=== PATIENT | female | born 2000 | race Caucasian/White ===

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

== ENCOUNTER 2023-10-03 11:38 | Emergency (ER) | payer BC ==
[2023-10-03] MEDS ORDERED: ACETAMINOPHEN INJECTION 100 ML IVPB ONE (12:27)
[2023-10-03] MEDS: SODIUM CHLORIDE 0.9% 1000 ML INFUS.BAG IV ONE (12:33)
[2023-10-03] MEDS: ACETAMINOPHEN 1000 MG/100 ML BAG IVPB ONE (12:37)
[2023-10-03 12:44] VITALS: BP 112/55; PULSE 91; RESP 16; TEMP 98.1; BMI 23.4
[2023-10-03 12:51] LABS: HEMATOCRIT 41.5 % (32.4-45.2); HEMOGLOBIN 13.6 G/dL (10.7-15.3); MCHC 32.7 g/dl (32.0-36.0); MEAN CELL VOLUME 88.7 fl (80-96); PLATELET COUNT 276.2 10^3/uL (134-434); RBC 4.68 10^6/uL (3.60-5.2); RDW 13.4 % (11.6-15.6); WHITE BLOOD COUNT 10.2 10^3/uL (4.0-10.8)
[2023-10-03 13:00] LABS: ALBUMIN 4.6 g/dl (3.4-5.0); BILIRUBIN,TOTAL 0.4 mg/dl (0.2-1); CALCIUM 9.7 mg/dl (8.5-10.1); CREATININE 0.7 mg/dl (0.6-1.3); MAGNESIUM 1.8 mg/dL (1.8-2.4); POTASSIUM 3.7 mmol/L (3.5-5.1); TOT PROT 6.6 g/dl (6.4-8.2)
== END 2023-10-03 14:02 | disposition home or self-care (01) ==
LOC: FER 11:38
PROC: 3E033NZ Introduction of Analgesics, Hypnotics, Sedatives into Peripheral Vein, Percutaneous Approach (ICD-10-PCS; principal; 2023-10-03)
DX: R53.1 Weakness (principal); R42 Dizziness and giddiness; J02.9 Acute pharyngitis, unspecified; R05.9 Cough, unspecified; R09.81 Nasal congestion; Z20.822 Contact with and (suspected) exposure to COVID-19
CPT/HCPCS: 0241U-QW; 36415; 80053; 83735; 85027; 93005; 99284-25; J0131